=== PATIENT | female | born 1975 | race African-American/Black ===

== ENCOUNTER 2017-11-22 13:26 | Emergency (ER) | payer OTHER ==
[2017-11-22] MEDS: HYDROcodone/APAP 5/325MG 1 TAB TABLET PO (15:00)
== END 2017-11-22 15:27 | disposition home or self-care (01) ==
LOC: ER 13:26
DX: S16.1XXA Strain of muscle, fascia and tendon at neck level, initial encounter (principal); S09.90XA Unspecified injury of head, initial encounter; R07.81 Pleurodynia; Z88.0 Allergy status to penicillin; V47.5XXA Car driver injured in collision with fixed or stationary object in traffic accident, initial encounter; Y93.I9 Activity, other involving external motion; Y92.410 Unspecified street and highway as the place of occurrence of the external cause; Y99.8 Other external cause status
CPT/HCPCS: 70450; 71101; 72125; 99284-25

== ENCOUNTER 2018-01-05 07:43 | Emergency (ER) | payer BC, OTHER ==
[2018-01-05] MEDS: LIDOCAINE WITH 8.4% SOD BICARB 3 ML DISP.SYRIN. INJ (08:39)
== END 2018-01-05 09:03 | disposition home or self-care (01) ==
LOC: ER 07:43
DX: N90.7 Vulvar cyst (principal); D17.72 Benign lipomatous neoplasm of other genitourinary organ; I10 Essential (primary) hypertension; Z96.649 Presence of unspecified artificial hip joint; Z88.0 Allergy status to penicillin
CPT/HCPCS: 96372; 99283

== ENCOUNTER 2018-07-27 11:19 | Emergency (ER) | payer BC ==
[~2018-07-27] VITALS: Ht 172.7 cm; Wt 108.9 kg
[~2018-07-27 11:19] MED LIST: DIAZ5TAB PO; IBUP-1060 PO
[2018-07-27 11:35] VITALS: BP 170/103
[2018-07-27] MEDS ORDERED: FAMOTIDINE 20 MG TABLET. PO ONE ×2 (11:45)
[2018-07-27] MEDS ORDERED: predniSONE 20 MG TABLET PO ONE (11:45)
--- NOTE | 2018-07-27 12:28 | PHYS DOC ---
Past Medical History Past Medical History: Hypertension, Seizure Past Surgical History: Knee Replacement Alcohol Use: Rarely Drug Use: None Adult General Chief Complaint Chief Complaint: ALLERGIC REACTION HPI HPI Patient is a 42 year old female with history of hypertension, seizures, who presents today complaining of an allergic reaction. Patient states she was given Bactrim and Tessalon Perles yesterday at an urgent care after being diagnosed with sinusitis. She states she took one tablet of each of the medications then woke up this morning and noted her left upper lip was swollen, she felt her throat and tongue were swollen too. Patient states she did not take anything for her symptoms. She states she came to the emergency room. Patient denies any difficulty breathing. Denies any difficulty swallowing. She states she's had upper respiratory infection symptoms including nasal congestion and coughing for 3 days. She also states she had subjective fevers. Review of Systems Review of Systems Constitutional: Denies fever or chills [] Eyes: Denies change in visual acuity, redness, or eye pain [] HENT: Reports nasal congestion, reports throat and tongue swelling. Respiratory: Reports cough, denies shortness of breath [] Cardiovascular: No additional information not addressed in HPI [] GI: Denies abdominal pain, nausea, vomiting, bloody stools or diarrhea [] : Denies dysuria or hematuria [] Musculoskeletal: Denies back pain or joint pain [] Integument: Denies rash or skin lesions [] Neurologic: Denies headache, focal weakness or sensory changes [] All other systems were reviewed and found to be within normal limits, except as documented in this note. Current Medications Current Medications Current Medications Medications (Trade) Dose Ordered Sig/Jesu Start Time Stop Time Status Last Admin Dose Admin Famotidine (Pepcid) 20 mg 1X ONCE 07/27/18 11:45 07/27/18 11:46 UNV Prednisone (Prednisone) 60 mg 1X ONCE 07/27/18 11:45 07/27/18 11:46 DC 07/27/18 11:48 60 MG Allergies Allergies Allergies Coded Allergies Type Severity Reaction Last Updated Verified Sulfa (Sulfonamide Antibiotics) Allergy Severe lip swelling 07/27/18 Yes benzonatate Allergy Severe lip swelling 07/27/18 Yes Penicillins Allergy Intermediate 11/22/17 Yes Physical Exam Physical Exam Constitutional: Well developed, well nourished, no acute distress, non-toxic appearance. [] HENT: Normocephalic, atraumatic, bilateral external ears normal, oropharynx moist, no oral exudates, nose normal. [] Airway is open. No throat, tongue or lip swelling noted. Eyes: PERRLA, EOMI, conjunctiva normal, no discharge. [] Neck: Normal range of motion, no tenderness, supple, no stridor. [] Cardiovascular:Heart rate regular rhythm, no murmur [] Lungs & Thorax: Bilateral breath sounds clear to auscultation [] Abdomen: Bowel sounds normal, soft, no tenderness, no masses, no pulsatile masses. [] Skin: Warm, dry, no erythema, no rash. [] Back: No tenderness, no CVA tenderness. [] Extremities: No tenderness, no cyanosis, no clubbing, ROM intact, no edema. [] Neurologic: Alert and oriented X 3, normal motor function, normal sensory function, no focal deficits noted. [] Psychologic: Affect normal, judgement normal, mood normal. [] Current Patient Data Vital Signs Vital Signs Date Time Temp Pulse Resp B/P (MAP) Pulse Ox O2 Delivery O2 Flow Rate FiO2 07/27/18 11:35 98.7 92 18 170/103 (125) 97 Room Air 98.7 EKG EKG [] Radiology/Procedures Radiology/Procedures [] Course & Med Decision Making Course & Med Decision Making Pertinent Labs and Imaging studies reviewed. (See chart for details) This is a 42-year-old female patient presenting to the ED today to be evaluated for possible allergic reaction, patient states she was started on Bactrim and Tessalon Perles yesterday for acute sinusitis. She took one dose of each medication and woke up this morning feeling her throat was swollen, tongue and, lips were swelling. On physical exam no obvious throat, tongue or lip swelling was noted. Airway is open. Vitals are stable. Instructed patient not to take the Bactrim and Tessalon Perles. She was given prednisone Pepcid and Benadryl in the ED and discharged with the same. I currently do not feel she needs to be in an another antibiotic for her upper respiratory infection symptoms considering they been going on for 3 days, I doubt it is sinusitis. She was discharged to home with a prescription for Flonase. Provided her return precautions and discharged in stable condition. Her blood pressure was 170/103, patient has history of hypertension. She was encouraged to make sure she is taking her blood pressure medications as ordered. Dragon Disclaimer Dragon Disclaimer This electronic medical record was generated, in whole or in part, using a voice recognition dictation system. Departure Departure Impression: Primary Impression: Upper respiratory infection Additional Impressions: Allergic reaction Hypertension Disposition: 01 HOME, SELF-CARE Condition: STABLE Referrals: PAULINO OQUENDO MD (PCP) Follow-up in one week Patient Instructions: Drug Allergy, Hypertension, Upper Respiratory Infection, Adult Additional Instructions: You were evaluated in the emergency room. Please take Benadryl, prednisone and Pepcid as discussed. Please do not take Bactrim or the Tessalon Perles. Please follow-up with your doctor in 1-2 weeks, come back to the ED at any point symptoms worsen. Your blood pressure was also elevated, ensure you are taking your blood pressure medications and follow-up with your doctor Scripts Famotidine (FAMOTIDINE) 20 Mg Tablet 20 MG PO DAILY, #7 TAB Prov: GIDEON INFANTE APRN 07/27/18 Fluticasone Propionate (Flonase Allergy Relief) 9.9 Ml Sterrett.susp 2 SPRAYS NS DAILY, #1 BOTTLE Prov: GIDEON INFATNE APRN 07/27/18 Prednisone (PREDNISONE) 50 Mg Tablet 1 TAB PO DAILY, #4 TAB Prov: GIDEON INFANTE APRN 07/27/18 Problem Qualifiers Primary Impression: Upper respiratory infection URI type: unspecified URI Qualified Codes: J06.9 - Acute upper respiratory infection, unspecified Additional Impressions: Allergic reaction Encounter type: initial encounter Qualified Codes: T78.40XA - Allergy, unspecified, initial encounter Hypertension Hypertension type: unspecified Qualified Codes: I10 - Essential (primary) hypertension GIDEON INFANTE APRN Jul 27, 2018 12:28
[2018-07-27] MEDS ORDERED: FLUT9.9S NS (12:37)
[2018-07-27] MEDS ORDERED: PRED50TA PO (12:37)
[2018-07-27] MEDS ORDERED: FAMO20TA5 PO (12:38)
== END 2018-07-27 13:12 | disposition home or self-care (01) ==
LOC: ER 11:19
DX: J06.9 Acute upper respiratory infection, unspecified (principal); T78.49XA Other allergy, initial encounter; R22.0 Localized swelling, mass and lump, head; I10 Essential (primary) hypertension; Z96.659 Presence of unspecified artificial knee joint; Z88.2 Allergy status to sulfonamides; Z88.0 Allergy status to penicillin; Z88.8 Allergy status to other drugs, medicaments and biological substances; X58.XXXA Exposure to other specified factors, initial encounter
CPT/HCPCS: 99283; J7512

== ENCOUNTER 2018-08-02 17:29 | Emergency (ER) | payer BC ==
[~2018-08-02] VITALS: Ht 167.6 cm; Wt 114.3 kg
[~2018-08-02 17:29] MED LIST changes: +FAMO20TA5 PO; +FLUT9.9S NS; +PRED50TA PO
[2018-08-02 18:20] VITALS: BP 153/100
--- NOTE | 2018-08-02 19:25 | RAD ---
CHEST PA LATERAL CLINICAL INDICATION: COUGH,SOA X3 DAYS. HX OF ASTHMA,HBP COMPARISON: 11/22/2017 FINDINGS: Heart is normal in size. Stable prominence of perihilar vasculature noted. No focal consolidation. No pneumothorax or pleural effusion. Visualized bony thorax is within normal limits. IMPRESSION: No acute pulmonary process. Electronically signed by: Miguel Ángel Rowland DO (08/02/2018 7:21 PM) [facility]
[2018-08-02] MEDS ORDERED: AZIT250T PO (20:22)
--- NOTE | 2018-08-02 20:23 | PHYS DOC ---
Past Medical History Past Medical History: Hypertension, Seizure, URI Past Surgical History: Knee Replacement Additional Information: 0.5 PPD Alcohol Use: Rarely Drug Use: None Adult General Chief Complaint Chief Complaint: COUGH [facility] HPI Patient is a 42 year old female who presents with nasal congestion and a cough for 1-1/2 weeks. Patient has been seen in urgent care for the same symptoms, has also been evaluated in the emergency room a couple days ago for the same symptoms. Was informed she has an upper respiratory infection. She is very upset stating she works at [employer]. She also states she would like to be given prescription cough syrup for her symptoms. She states she has waited for 3 hours to be seen. Patient has a negative chest x-ray. Her vitals are stable with no fever. Her symptoms are likely viral. She has been an incredible amount of time asking for cough syrup which I declined to give her. Informed her we do not give cough syrups prescription strength for upper respiratory infection. She is asking for antibiotics. Gave her prescription for azithromycin. Informed her symptoms are viral. She needs to continue using [id number] remedies, push fluids, Tylenol/ Motrin for pain or fever. Review of Systems Review of Systems Constitutional: Denies fever or chills [] Eyes: Denies change in visual acuity, redness, or eye pain [] HENT: Denies nasal congestion or sore throat [] Respiratory: Denies cough or shortness of breath [] Cardiovascular: No additional information not addressed in HPI [] GI: Denies abdominal pain, nausea, vomiting, bloody stools or diarrhea [] : Denies dysuria or hematuria [] Musculoskeletal: Denies back pain or joint pain [] Integument: Denies rash or skin lesions [] Neurologic: Denies headache, focal weakness or sensory changes [] Endocrine: Denies polyuria or polydipsia [] All other systems were reviewed and found to be within normal limits, except as documented in this note. Allergies Allergies Allergies Coded Allergies Type Severity Reaction Last Updated Verified Sulfa (Sulfonamide Antibiotics) Allergy Severe lip swelling 07/27/18 Yes benzonatate Allergy Severe lip swelling 07/27/18 Yes Penicillins Allergy Intermediate 11/22/17 Yes Physical Exam Physical Exam Constitutional: Well developed, well nourished, no acute distress, non-toxic appearance. [] HENT: Normocephalic, atraumatic, bilateral external ears normal, oropharynx moist, no oral exudates, nose normal. [] Eyes: PERRLA, EOMI, conjunctiva normal, no discharge. [] Neck: Normal range of motion, no tenderness, supple, no stridor. [] Cardiovascular:Heart rate regular rhythm, no murmur [] Lungs & Thorax: Bilateral breath sounds clear to auscultation [] Abdomen: Bowel sounds normal, soft, no tenderness, no masses, no pulsatile masses. [] Skin: Warm, dry, no erythema, no rash. [] Back: No tenderness, no CVA tenderness. [] Extremities: No tenderness, no cyanosis, no clubbing, ROM intact, no edema. [] Neurologic: Alert and oriented X 3, normal motor function, normal sensory function, no focal deficits noted. [] Psychologic: Affect normal, judgement normal, mood normal. [] Current Patient Data Vital Signs Vital Signs Date Time Temp Pulse Resp B/P (MAP) Pulse Ox O2 Delivery O2 Flow Rate FiO2 08/02/18 18:20 98.3 79 20 153/100 (117) 96 Room Air 98.3 EKG EKG [] Radiology/Procedures Radiology/Procedures [] Course & Med Decision Making Course & Med Decision Making Pertinent Labs and Imaging studies reviewed. (See chart for details) see HPI Dragon Disclaimer Dragon Disclaimer This electronic medical record was generated, in whole or in part, using a voice recognition dictation system. Departure Departure Impression: Primary Impression: Upper respiratory infection Additional Impressions: Cough Acute viral bronchiolitis Disposition: 01 HOME, SELF-CARE Condition: STABLE Referrals: PAULINO OQUENDO MD (PCP) follow up this week Patient Instructions: Acute Bronchitis, Cough, Adult, [id number], Upper Respiratory Infection, Adult, [id number] Additional Instructions: You were seen in the ED with symptoms consistent of viral infection. We do not give promethazine with codeine /cough syrups in the emergency room for upper respiratory infections. You need to take [id number] cough medicines as needed. You can follow-up with your primary care doctor in the course of this week or next week. Scripts Azithromycin (ZITHROMAX) 250 Mg Tablet 1 PKG PO UD, #1 PKG Prov: SKINNYAGIDEON ADAPTED PHYSICAL EDUCATION AIDE 08/02/18 Problem Qualifiers Primary Impression: Upper respiratory infection URI type: unspecified URI Qualified Codes: J06.9 - Acute upper respiratory infection, unspecified GIDEON INFANTE APRN Aug 02, 2018 20:23
== END 2018-08-02 20:25 | disposition home or self-care (01) ==
LOC: ER 17:29
DX: J21.8 Acute bronchiolitis due to other specified organisms (principal); J06.9 Acute upper respiratory infection, unspecified; I10 Essential (primary) hypertension; F17.200 Nicotine dependence, unspecified, uncomplicated; Z96.659 Presence of unspecified artificial knee joint; Z88.0 Allergy status to penicillin; Z88.2 Allergy status to sulfonamides; Z88.8 Allergy status to other drugs, medicaments and biological substances
CPT/HCPCS: 71046; 99283